=== PATIENT | female | born 1990 | race Hispanic/Latino ===

== ENCOUNTER 2022-11-13 18:58 | Emergency (ER) | payer BC, OTHER ==
[~2022-11-13] VITALS: Ht 175.3 cm; Wt 109.0 kg
[2022-11-13 20:16] LABS: APPEARANCE,URINE CLEAR (CLEAR); BILIRUBIN,URINE NEGATIVE (NEGATIVE); COLOR,URINE COLORLESS (YELLOW); GLUCOSE, URINE (UA) NEGATIVE (NEGATIVE); KETONES,URINE NEGATIVE (NEGATIVE); LEUKOCYTE ESTERASE ,URINE NEGATIVE Leu/uL (NEGATIVE); NITRATE,URINE NEGATIVE (NEGATIVE); OCCULT BLOOD,URINE NEGATIVE (NEGATIVE); PH,URINE 6.5 (5.0-8.0); PROTEIN,URINE NEGATIVE (NEGATIVE); UROBILINOGEN,URINE 0.2 mg/dL (0.2-1.0)
[2022-11-13 20:18] LABS: HCG,QUALITATIVE URINE NEGATIVE (NEGATIVE); RBC,URINE 0-1 /HPF (0-1); WBC,URINE 0-1 /HPF (0-1)
[2022-11-13 21:04] VITALS: BP 132/76
[2022-11-13] MEDS ORDERED: AZIT500T2 PO (21:28)
[2022-11-13] MEDS ORDERED: ALBU90AE2 IH (21:28)
== END 2022-11-13 21:33 | disposition home or self-care (01) ==
LOC: EDH 18:58
DX: J20.9 Acute bronchitis, unspecified (principal); Z87.891 Personal history of nicotine dependence
CPT/HCPCS: 71045; 81001; 81025; 93005